=== PATIENT | male | born 1940 | race Caucasian/White ===

== ENCOUNTER 2022-04-06 06:12 | Inpatient (IN) ==
[2022-04-06] MEDS ORDERED: CeFAZolin Syr 2,000MG/20 ML 2,000 MG/20 ML SYRINGE IVPB ONE (06:41)
[2022-04-06] MEDS ORDERED: Vancomycin 1,500 MG/265 ML IV.SOLN IVPB ONE ×2 (06:41→20:30)
[2022-04-06] MEDS ORDERED: Ringers Solution, Lactated 1,000 ML IVC SCH (06:45)
[2022-04-06] MEDS ORDERED: *HR* FentaNYL (PF) 100 MCG/2 ML VIAL ONE ×2 (07:02→11:06)
[2022-04-06] MEDS ORDERED: EPHEDrine sulfate 50 MG/10 ML VIAL IVP ONE (07:02)
[2022-04-06] MEDS ORDERED: *HR* Propofol 200 MG/20 ML VIAL IVP ONE (07:03)
[2022-04-06] MEDS ORDERED: Heparin 1,000 UNITS/500 mL 500 ML ONE (07:04)
[2022-04-06] MEDS ORDERED: *HR* Rocuronium Bromide 50 MG/5 ML VIAL ONE (07:08)
[2022-04-06] MEDS ORDERED: *HR* Succinylcholine 200 MG/10 ML VIAL IVP ONE (07:08)
[2022-04-06] MEDS ORDERED: Lidocaine -MPF 2% 2 ML VIAL ONE ×3 (07:08→08:02)
[2022-04-06] MEDS ORDERED: *HR* Phenylephrine 10 MG/ML VIAL ONE (07:08)
[2022-04-06] MEDS ORDERED: Ondansetron 4 MG/2 ML VIAL ONE (07:08)
[2022-04-06] MEDS ORDERED: Bupivacaine-MPF 0.25% 10 ML VIAL ONE (07:12)
[2022-04-06] MEDS ORDERED: Iopamidol - 300 50 ML VIAL ONE (07:12)
[2022-04-06] MEDS ORDERED: Iopamidol - 300 100 ML INFUS..BTL ONE (07:12)
[2022-04-06] MEDS ORDERED: Heparin 1,000 UNITS/500 mL 1,500 ML ONE (07:12)
[2022-04-06] MEDS ORDERED: *HR* Remifentanil 2 MG VIAL IVP ONE (07:14)
[2022-04-06] MEDS ORDERED: Lidocaine -MPF 4% 5 ML AMPUL ONE (07:17)
[2022-04-06] MEDS ORDERED: *HR* Etomidate 40 MG/20 ML VIAL IVP ONE (07:22)
[2022-04-06] MEDS ORDERED: *HR* Vasopressin 20 UNIT/ML VIAL ONE (07:30)
[2022-04-06] MEDS ORDERED: NiCARdipine 2.5 MG/10 ML Syringe IVPB ONE (07:30)
[2022-04-06] MEDS ORDERED: Vancomycin 1,000 MG, Sodium Chloride IRRigation 1,000 ML IR ONE (07:45)
[2022-04-06] MEDS ORDERED: Heparin 1,000 UNITS/500 mL 0 ML ONE (07:49)
[2022-04-06] MEDS ORDERED: Vancomycin 1,000 MG VIAL ONE (07:49)
[2022-04-06] MEDS ORDERED: *HR* Heparin 5,000 UNIT/ML VIAL ONE (08:44)
[2022-04-06] MEDS ORDERED: *HR* Metoprolol 5 MG/5 ML VIAL IVP ONE (10:57)
[2022-04-06] MEDS ORDERED: *HR* Labetalol 20 MG/4 ML SYRINGE IVP ONE (10:57)
[2022-04-06] MEDS ORDERED: Acetaminophen 325 MG TABLET PO PRN (12:23)
[2022-04-06] MEDS ORDERED: Ondansetron 4 MG/2 ML VIAL IVP PRN (12:23)
[2022-04-06] MEDS ORDERED: Naloxone 0.4 MG/ML INJ IVP PRN (12:23)
[2022-04-06] MEDS ORDERED: 0.9 % Sodium Chloride 1,000 ML IVC SCH (12:23)
[2022-04-06] MEDS ORDERED: *HR* Labetalol 20 MG/4 ML SYRINGE IVP PRN (12:23)
[2022-04-06] MEDS ORDERED: *HR* HYDROcodone/Acet 5/325 mg TABLET PO PRN (12:23)
[2022-04-06] MEDS ORDERED: *HR* OxyCODONE Immed Rel 5 MG TABLET PO PRN (12:23)
[2022-04-06] MEDS ORDERED: Nitroglycerin 0.4 MG TAB.SUBL SL PRN (12:23)
[2022-04-06] MEDS: *HR* Metoprolol 5 MG/5 ML VIAL IVP SCH ×3 (12:41→23:15)
[2022-04-06] MEDS: CeFAZolin 2 GM/120 ML BAG IVPB SCH ×2 (15:42→15:43)
[2022-04-07] MEDS ORDERED: CeFAZolin 2 GM/120 ML BAG IVPB SCH
[2022-04-07 04:59] LABS: Basophils % 0.2 %; Eosinophils % 0.2 %; Hematocrit 31.8 % (37.5-50.1); Hemoglobin 9.9 g/dL (12.9-16.9); Immature Granulocytes % 0.3 % (0-4); Lymphocytes # 1.5 K/mcL (0.6-4.6); Lymphocytes % 13.1 %; Mean Corpuscular HGB Conc 31.1 g/dL (31.6-35.5); Mean Corpuscular Hemoglobin 27.7 pg (28.0-33.3); Mean Corpuscular Volume 88.8 fL (83.0-100.0); Mean Platelet Volume 9.9 fL (9.4-12.4); Monocytes # 1.2 K/mcL (0.0-1.3); Monocytes % 10.2 %; Neutrophils # 8.6 K/mcL (1.6-8.9); Platelet Count 224 K/mcL (140-400); Red Blood Count 3.58 M/mcL (4.19-5.50); White Blood Count 11.3 K/mcL (4.3-11.1)
[2022-04-07 05:18] LABS: Calcium 8.7 mg/dL (8.6-10.3); Potassium 4.8 mEq/L (3.5-5.1)
[2022-04-07] MEDS: *HR* Metoprolol 5 MG/5 ML VIAL IVP SCH (05:47)
[2022-04-07] MEDS ORDERED: *HR* Heparin 5,000 UNIT/ML VIAL SQ SCH ×2 (06:00)
[2022-04-07] MEDS ORDERED: Aspirin Enteric Coated 81 MG Tablet PO SCH (09:00)
[2022-04-07] MEDS ORDERED: Multivit/Ca/Min/Fe/FA 1 TAB TABLET PO SCH (09:00)
[2022-04-07] MEDS ORDERED: Spironolactone 25 MG TABLET PO SCH (09:00)
[2022-04-07] MEDS ORDERED: Metoprolol XL (24 HR) Succ 25 MG TAB.ER.24H PO SCH (09:00)
[2022-04-07 10:53] VITALS: BP 105/54; PULSE 64; TEMP 98.5; O2SAT 91
== END 2022-04-07 12:53 | disposition home or self-care (01) | DRG 269 ==
LOC: SAMDAY 06:12 → 2NNU 12:22
PROVIDERS: ADMIT Surgery; ATTEND Surgery